=== PATIENT | male | born 1960 | race Caucasian/White ===

== ENCOUNTER → 2019-06-19 07:48 | Outpatient (BNVA) | payer MEDICARE, SELFPAY | PROVIDERS: Family Provider Family Medicine; Visit Provider Nurse Practitioner | DX: F25.1 Schizoaffective disorder, depressive type (principal) | CPT/HCPCS: 99214 ==

== ENCOUNTER → 2019-10-29 09:28 | Outpatient (BNVA) | payer MEDICARE, SELFPAY | PROVIDERS: Family Provider Family Medicine; Visit Provider Nurse Practitioner | DX: F25.1 Schizoaffective disorder, depressive type (principal) | CPT/HCPCS: 99213 ==

== ENCOUNTER → 2020-01-21 08:08 | Outpatient (BNVA) | payer MEDICARE, SELFPAY | PROVIDERS: Family Provider Family Medicine; Visit Provider Nurse Practitioner | DX: F25.1 Schizoaffective disorder, depressive type (principal) | CPT/HCPCS: 99213 ==

== ENCOUNTER → 2020-09-18 13:25 | Outpatient (BNVA) | payer MEDICARE, SELFPAY | PROVIDERS: Family Provider Family Medicine; Visit Provider Nurse Practitioner | DX: F25.1 Schizoaffective disorder, depressive type (principal) | CPT/HCPCS: 99214 ==

== ENCOUNTER → 2020-12-28 09:13 | Outpatient (BNVA) | payer MEDICARE, SELFPAY | PROVIDERS: Family Provider Family Medicine; Visit Provider Nurse Practitioner | DX: F25.1 Schizoaffective disorder, depressive type (principal) | CPT/HCPCS: 99214 ==

== ENCOUNTER → 2021-05-31 13:48 | Outpatient (BNVA) | payer MEDICARE, SELFPAY | PROVIDERS: Family Provider Family Medicine; Visit Provider Nurse Practitioner | DX: F25.1 Schizoaffective disorder, depressive type (principal) | CPT/HCPCS: 99214 ==